=== PATIENT | male | born 1970 | race Caucasian/White ===

== ENCOUNTER 2016-06-18 23:12 | Emergency (ER) | payer OTHER ==
[~2016-06-18] VITALS: Ht 175.3 cm; Wt 177.0 kg
[~2016-06-18 23:12] MED LIST: BACT800T5 PO; CEPH500 PO
[2016-06-18 23:19] VITALS: BP 124/87; PULSE 76; RESP 16; TEMP 98.4; O2SAT 96
--- NOTE | 2016-06-19 00:39 | PD ---
HPI Chief Complaint: Injury Time Seen by Provider: 00:30 Travel History International Travel<30 days: No Contact w/Intl Traveler<30days: No Traveled to known affect area: No History of Present Illness HPI The patient is a 45-year-old male that accidentally lifted his right great toenail up at 10 PM tonight when he stubbed it on a baby carriage. He states he did not have the ability to simply remove the nail on his own. His last tetanus shot was over 10 years. He denies any other injury. PFSH Past Medical History Cancer: No Cardiovascular Problems: No Diabetes: No Diminished Hearing: No Endocrine: No Gastrointestinal Disorders: No Genitourinary: No Hepatitis: No Hiatal Hernia: No Hypertension: No Immune Disorder: No Musculoskeletal: No Neurologic: No Psychiatric: No Reproductive: No Respiratory: Yes (SLEEP APNEA-USES C-PAP) Immunizations Current: Yes Thyroid Disease: No Tetanus Vaccination: Unknown Influenza Vaccination: No Past Surgical History Body Medical Devices: NONE Oral Surgery: Yes (T&A -2006 DEVIATED NASAL SEPTUM) Thoracic Surgery: Yes (AGE 10 CARTER BREAST REDUCTION (GYNECOMASTIA)) Other Surgery: Yes (VASCULAR SURGERY ON BILAT LEGS for varicose veins) Social History Alcohol Use: Yes (OCCAS. WINE) Tobacco Use: No Substance Use: No Allergies-Medications (Allergen,Severity, Reaction): Coded Allergies: No Known Allergies (Verified , 01/09/15) Reported Meds & Prescriptions Reported Meds & Active Scripts Active No Active Prescriptions or Reported Medications Review of Systems Except as stated in HPI: all other systems reviewed are Neg Physical Exam Narrative GENERAL: Well-nourished, well-developed patient in slight apparent distress with his great toenail discomfort. His vital signs are normal. SKIN: Warm and dry. HEAD: Normocephalic. EYES: No scleral icterus. No injection or drainage. NECK: Supple, trachea midline. No JVD or lymphadenopathy. CARDIOVASCULAR: Regular rate and rhythm without murmurs, gallops, or rubs. RESPIRATORY: Breath sounds equal bilaterally. No accessory muscle use. GASTROINTESTINAL: Abdomen soft, non-tender, nondistended. MUSCULOSKELETAL: No cyanosis, or edema. The great toenail is flipped up and is barely hanging on. BACK: Nontender without obvious deformity. No CVA tenderness. Data Data Last Documented VS Vital Signs Date Time Temp Pulse Resp B/P Pulse Ox O2 Delivery O2 Flow Rate FiO2 06/18/16 23:51 Room Air 06/18/16 23:19 98.4 76 16 124/87 96 Orders Tetanus/Diphtheria Tox Adult (Tetanus/Di (06/19/16 00:45) MDM Medical Decision Making Medical Screen Exam Complete: Yes Emergency Medical Condition: Yes Medical Record Reviewed: Yes Differential Diagnosis Avulsed nail, toenail able to be reestablished at bed Narrative Course The patient's toenail was pain on eye only a small amount of skin. It was easily removed with little pain. He will need to soak it daily and wrap the nail bed using antibiotic ointment on the bed and nonadherent dressings. Procedures Procedure Narrative The great toenail was easily removed just by pulling it off. Before I did this I offered him a digital block which would be much more painful than simply pulling the toenail off. The toenail was pulled off easily and the patient had a little pain in doing this. The toenail was completely unable to be reestablished as nail bed and was totally torn off except for small piece of skin attachment. Diagnosis Primary Impression: Avulsed toenail Additional Instructions: As we discussed, soak it once daily and change the bandage at least once daily. Use antibiotic ointment on the nailbed. If you have any problems, follow-up with a surveillance technician. The nail may give you problems when it grows out with ingrown toenails. Med/Other Pt SpecificInfo: No Change to Meds Scripts No Active Prescriptions or Reported Meds Disposition: 01 DISCHARGE HOME Condition: Stable Bairon Mahoney MD Jun 19, 2016 00:39
[2016-06-19] MEDS ORDERED: TETANUS/DIPHTHERIA TOXOID ADULT 0.5 ML VIAL IM ONE (00:45)
== END 2016-06-19 01:25 | disposition home or self-care (01) ==
LOC: PHED 23:12
DX: S91.201A Unspecified open wound of right great toe with damage to nail, initial encounter (principal); Z23 Encounter for immunization; W22.8XXA Striking against or struck by other objects, initial encounter; Y93.9 Activity, unspecified; Y92.9 Unspecified place or not applicable; Y99.9 Unspecified external cause status
CPT/HCPCS: 90471; 90714

== ENCOUNTER 2016-08-14 11:54 | Emergency (ER) | payer OTHER ==
[~2016-08-14] VITALS: Ht 175.3 cm; Wt 178.3 kg
[2016-08-14 12:00] VITALS: BP 135/97; PULSE 107; RESP 16; TEMP 98.4; O2SAT 96
[2016-08-14 12:50] VITALS: BP 134/78
[2016-08-14] MEDS ORDERED: ZOFR4TAB3 SL (13:00)
[2016-08-14] MEDS ORDERED: ONDANSETRON ODT 4 MG TAB PO ONE (13:00)
--- NOTE | 2016-08-14 13:00 | PD ---
HPI Chief Complaint: GI Complaint Time Seen by Provider: 12:42 Travel History International Travel<30 days: No Contact w/Intl Traveler<30days: No Traveled to known affect area: No History of Present Illness HPI 46-year-old male complains of nausea vomiting and elevated blood pressure. Patient states that she started having nausea last night and vomited once this morning. Patient denies any headache. Patient denies any visual change. Patient denies any chest pain or shortness of breath. Patient denies abdominal pain. Patient denies any focal weakness or numbness of extremity. EMS was called this morning. Patient's blood pressure was elevated. Patient states that he has history of transient elevated blood pressure in the past. Patient is not on any blood pressure medication. [facility] Past Medical History Medical History: Denies Significant Hx Cardiovascular Problems: Yes (borderline htn) Diminished Hearing: No Respiratory: Yes (SLEEP APNEA-USES C-PAP) Immunizations Current: Yes Influenza Vaccination: No Past Surgical History Body Medical Devices: NONE Oral Surgery: Yes (T&A -2006 DEVIATED NASAL SEPTUM) Thoracic Surgery: Yes (AGE 10 CARTER BREAST REDUCTION (GYNECOMASTIA)) Other Surgery: Yes (VASCULAR SURGERY ON BILAT LEGS for varicose veins) Social History Alcohol Use: Yes (OCCAS. WINE) Tobacco Use: No Substance Use: No Allergies-Medications (Allergen,Severity, Reaction): Coded Allergies: No Known Allergies (Verified , 08/14/16) Reported Meds & Prescriptions Reported Meds & Active Scripts Active No Active Prescriptions or Reported Medications Review of Systems General / Constitutional: No: Fever Eyes: No: Visual changes HENT: No: Headaches Cardiovascular: No: Chest Pain or Discomfort Respiratory: No: Shortness of Breath Gastrointestinal: Positive: Nausea, Vomiting, No: Abdominal Pain Genitourinary: No: Dysuria Musculoskeletal: No: Pain Skin: No Rash Neurologic: No: Weakness Psychiatric: No: Depression Endocrine: No: Polydipsia Hematologic/Lymphatic: No: Easy Bruising Physical Exam Narrative GENERAL: Well-nourished, well-developed patient. SKIN: Warm and dry. HEAD: Normocephalic. EYES: No scleral icterus. No injection or drainage. NECK: Supple, trachea midline. No JVD or lymphadenopathy. CARDIOVASCULAR: Regular rate and rhythm without murmurs, gallops, or rubs. RESPIRATORY: Breath sounds equal bilaterally. No accessory muscle use. GASTROINTESTINAL: Abdomen soft, non-tender, nondistended. MUSCULOSKELETAL: No cyanosis, or edema. BACK: Nontender without obvious deformity. No CVA tenderness. Neurologic exam normal. Data Data Last Documented VS Vital Signs Date Time Temp Pulse Resp B/P Pulse Ox O2 Delivery O2 Flow Rate FiO2 08/14/16 12:50 134/78 08/14/16 12:50 18 08/14/16 12:00 98.4 107 96 MDM Medical Decision Making Medical Screen Exam Complete: Yes Emergency Medical Condition: Yes Differential Diagnosis Differential diagnosis including gastroenteritis, viral syndrome, new onset hypertension. Narrative Course 46-year-old male with nausea vomiting and elevated blood pressure. Recheck blood pressure in the room is normal. Zofran 4 mg ODT given. Diagnosis Primary Impression: Gastroenteritis Patient Instructions: General Instructions Additional Instructions: Zofran as needed for nausea vomiting. Follow-up with personal physician. Return if persistent or worse. Check blood pressure at home and follow-up with personal physician. Return if persistent elevated blood pressure. Med/Other Pt SpecificInfo: Prescription(s) given Scripts Ondansetron Odt (Zofran Odt)4 Mg Tab4 Mg SL Q6HR PRN (Nausea/Vomiting) #10 TAB Prov:Jd Lopez MD 08/14/16 Disposition: 01 DISCHARGE HOME Condition: Stable Jd Lopez MD Aug 14, 2016 13:00
== END 2016-08-14 13:15 | disposition home or self-care (01) ==
LOC: PHED 11:54
DX: K52.9 Noninfective gastroenteritis and colitis, unspecified (principal); R03.0 Elevated blood-pressure reading, without diagnosis of hypertension; G47.30 Sleep apnea, unspecified; Z86.79 Personal history of other diseases of the circulatory system
CPT/HCPCS: 99283